=== PATIENT | female | born 1985 | race Caucasian/White ===

== ENCOUNTER 2017-07-16 06:05 | Emergency (ER) | payer MEDICAID ==
[~2017-07-16] VITALS: Ht 170.2 cm; Wt 57.8 kg
[2017-07-16 07:30] LABS: CLUE CELLS NONE SEEN (NONE SEEN); WET PREP WBCS FEW (FEW)
[2017-07-16] MEDS ORDERED: LIDOCAINE-MPF 1%, 2ML ONE ×2 (08:00→08:05)
[2017-07-16] MEDS ORDERED: CEFTRIAXONE 250 MG ONE ×2 (08:00→08:04)
[2017-07-16] MEDS ORDERED: AZITHROMYCIN 250 MG TABLET ONE (08:02)
[2017-07-16] MEDS ORDERED: CEFTRIAXONE 250 MG IM ONE (08:30)
[2017-07-16] MEDS ORDERED: AZITHROMYCIN 500 MG TABLET PO ONE (08:30)
[2017-07-16 08:35] LABS: HCG UR SG 1.025 (1.003-1.030)
[2017-07-16 08:36] LABS: MICROSCOPIC INDICATED
[2017-07-16 09:04] LABS: CULTURE INDICATED? YES
[2017-07-16 09:30] VITALS: BP 127/77
== END 2017-07-16 09:32 | disposition home or self-care (01) ==
LOC: ED 07:01
DX: N30.90 Cystitis, unspecified without hematuria (principal); N72 Inflammatory disease of cervix uteri
CPT/HCPCS: 71101; 81001; 81025; 87077; 87086; 87186; 87210; 87491; 87591; 87808; 96372; 99285; J0696

== ENCOUNTER 2018-07-14 04:12 | Emergency (ER) | payer MEDICAID ==
[~2018-07-14] VITALS: Ht 170.2 cm; Wt 57.2 kg
--- NOTE | 2018-07-14 04:35 | NUR ---
FIRST CONTACT WITH PT. PT STATES THAT PT POSSIBLE FB IN RIGHT NECK FROM INJECTING SINCE LAST NIGHT. PT C/O A RASH TO ALL OVER THE BODY AND ABD BLOATING X 1 MONTH. PT DENIES N/V/D AT THIS TIME. BP/SPO2 MONITORS IN PLACE. CALL LIGHT WITHIN REACH. AWAITING EDMD ASSESSMENT AT THIS TIME.
--- NOTE | 2018-07-14 05:04 | NUR ---
pt medicated per emar. pt tolerated well. pt's aox4. resps even and unlabored.
[2018-07-14 05:55] VITALS: BP 116/82
--- NOTE | 2018-07-14 05:55 | NUR ---
PT RESTING IN GURNEY. PT'S AOX4. RESPS EVEN AND UNLABORED. PT'S FRIEND AT BEDSIDE AT THIS TIME. PT DENIES ANY NEEDS AND CONCERNS AT THIS TIME.
[2018-07-14] MEDS ORDERED: DIPH,PERTUSS(ACELL),TET VAC/PF 0.5 ML IM-VACC ONE ×2 (06:08→06:30)
--- NOTE | 2018-07-14 06:43 | NUR ---
PT GIVEN DC INSTRUCTIONS AND SCRIPTS. PT EDUCATED REGARDING DC MEDICATIONS. PT AMB TO DC WITH STEADY GAIT. NO ACUTE DISTRESS AT DC.
== END 2018-07-14 06:43 | disposition home or self-care (01) ==
LOC: ED 06:37
DX: S10.95XA Superficial foreign body of unspecified part of neck, initial encounter (principal); L03.221 Cellulitis of neck; L03.114 Cellulitis of left upper limb; L03.113 Cellulitis of right upper limb; L03.312 Cellulitis of back [any part except buttock and flank]; B86 Scabies; F11.10 Opioid abuse, uncomplicated; F15.10 Other stimulant abuse, uncomplicated; Z72.9 Problem related to lifestyle, unspecified; X58.XXXA Exposure to other specified factors, initial encounter; Y93.89 Activity, other specified; Y92.89 Other specified places as the place of occurrence of the external cause; Y99.8 Other external cause status
CPT/HCPCS: 70360; 90471; 90715; 99283; Q0177

== ENCOUNTER 2018-09-01 03:19 | Emergency (ER) | payer MEDICAID ==
[~2018-09-01] VITALS: Ht 170.2 cm; Wt 55.5 kg
[2018-09-01 03:21] VITALS: BP 141/87
--- NOTE | 2018-09-01 03:46 | NUR ---
PT CALLED TO PROVIDE UA, PT NOT IN LOBBY AT THIS TIME
--- NOTE | 2018-09-01 03:48 | NUR ---
PT FOUND IN LOBBY
[2018-09-01 04:23] LABS: HCG UR SG 1.026 (1.003-1.030); MICROSCOPIC AUTO
[2018-09-01 04:26] LABS: CULTURE INDICATED? YES
--- NOTE | 2018-09-01 04:59 | NUR ---
ATTEMPTED TO PROVIDE PT. WITH D/C PAPERS AT THIS TIME. UNABLE TO LOCATE PT. AT THIS TIME.
--- NOTE | 2018-09-01 05:04 | NUR ---
ABLE TO LOCATE PT. AND GO OVER D/C PAPERS AT THIS TIME. PT. VERBALIZED UNDERSTANDING OF ALL D/C INSTRUCTIONS.
== END 2018-09-01 05:06 | disposition home or self-care (01) ==
LOC: ED 03:39
DX: N30.00 Acute cystitis without hematuria (principal); F11.10 Opioid abuse, uncomplicated; B86 Scabies; Z72.9 Problem related to lifestyle, unspecified; F17.200 Nicotine dependence, unspecified, uncomplicated
CPT/HCPCS: 81001; 81025; 87077; 87086; 87186; 99283

== ENCOUNTER 2019-01-01 10:58 | Emergency (ER) | payer MEDICAID ==
[~2019-01-01] VITALS: Ht 172.7 cm; Wt 56.8 kg
[2019-01-01 12:22] VITALS: BP 126/81
== END 2019-01-01 12:24 | disposition home or self-care (01) ==
LOC: ED 11:35
DX: L29.9 Pruritus, unspecified (principal); B86 Scabies; F17.200 Nicotine dependence, unspecified, uncomplicated; Z72.9 Problem related to lifestyle, unspecified
CPT/HCPCS: 99283; Q0177

== ENCOUNTER 2019-07-01 06:59 | Emergency (ER) | payer MEDICAID ==
[~2019-07-01] VITALS: Ht 172.7 cm; Wt 57.6 kg
[2019-07-01 07:01] VITALS: BP 129/81
== END 2019-07-01 07:55 | disposition home or self-care (01) ==
LOC: ED 07:34
DX: L02.414 Cutaneous abscess of left upper limb (principal)
CPT/HCPCS: 99283

== ENCOUNTER 2020-10-29 17:35 | Emergency (ER) | payer MEDICAID ==
[~2020-10-29] VITALS: Ht 172.7 cm; Wt 59.7 kg
[2020-10-29 17:46] VITALS: BP 123/82
--- NOTE | 2020-10-29 18:04 | NUR ---
OPTICAL STORE MANAGER: PT PROVIDED URINE SAMPLE. UA ORDERED PER PROTOCOL AND SENT TO LAB.
[2020-10-29 18:14] LABS: MICROSCOPIC INDICATED
--- NOTE | 2020-10-29 18:17 | NUR ---
hvac field service technician: Pt walked back from lobby to room at this time. Steady upon ambulation.
--- NOTE | 2020-10-29 18:30 | NUR ---
PT BROUGHT BACK TO ROOM FROM LOBBY. PT CO PAINFUL URINATION X1 WEEK WITH FOUL ODOR. PT STATED THAT SHE HAS AN IUD THAT "NEEDED TO COME OUT YEARS AGO" AND HAS GENERAL PELVIC PAIN AND PAIN WITH SEX. PT DENIES ANY FEVER, CHILLS OR VAGINAL DISCAHRGE.
--- NOTE | 2020-10-29 19:11 | NUR ---
DISCHARGE INSTRUCTIONS REVIEWED WITH PT. ALL QUESTIONS ANSWERED AT THIS TIME.
== END 2020-10-29 19:19 | disposition home or self-care (01) ==
LOC: ED 18:05
DX: N30.00 Acute cystitis without hematuria (principal)
CPT/HCPCS: 81001; 87077; 87086; 87186; 99283

== ENCOUNTER 2021-02-14 16:49 | Emergency (ER) | payer MEDICAID ==
[~2021-02-14] VITALS: Ht 172.7 cm; Wt 57.0 kg
[2021-02-14 17:02] VITALS: BP 137/83
== END 2021-02-14 18:58 | disposition home or self-care (01) ==
LOC: ED 17:00
DX: A56.09 Other chlamydial infection of lower genitourinary tract (principal); F17.200 Nicotine dependence, unspecified, uncomplicated
CPT/HCPCS: 87210; 87491; 87591; 87808; 96372; 99283; J0696